=== PATIENT | female | born 1995 | race Caucasian/White ===

== ENCOUNTER 2023-07-22 20:05 | Emergency (ER) | payer BC ==
[~2023-07-22] VITALS: Ht 162.6 cm; Wt 67.6 kg
[2023-07-22 21:34] LABS: PREGNANCY TEST URINE QUAL NEGATIVE (NEGATIVE)
[2023-07-22] MEDS ORDERED: POLY119P2 PO (23:11)
[2023-07-22] MEDS ORDERED: SIME80TA15 PO (23:11)
[2023-07-22 23:18] VITALS: BP 110/69; TEMP 98.3; O2SAT 98
== END 2023-07-22 23:18 | disposition home or self-care (01) ==
LOC: ER 20:21
DX: K59.00 Constipation, unspecified (principal); R14.0 Abdominal distension (gaseous); Z88.0 Allergy status to penicillin
CPT/HCPCS: 74018; 84703-TC